=== PATIENT | male | born 1990 | race Two or more races ===

== ENCOUNTER 2022-03-05 08:37 | Emergency (ER) | payer MEDICAID ==
[~2022-03-05] VITALS: Ht 177.8 cm; Wt 75.0 kg
[2022-03-05] MEDS ORDERED: MORPHINE SULFATE 4 MG/ML CPJ (NOT FOR IM USE) IV ONE (08:45)
[2022-03-05] MEDS ORDERED: ONDANSETRON HCL 4MG/2ML INJ IV ONE (08:45)
[2022-03-05] MEDS ORDERED: SODIUM CHLORIDE 0.9% 1,000 ML IV ONE (08:45)
[2022-03-05] MEDS ORDERED: TETANUS, DIPHTHERIA, PERTUSSIS VAC/PF 0.5ML (>10YR OLD) IM ONE (08:45)
[2022-03-05 09:03] LABS: BASOPHILS % 0.7 % (0.0-2.0); EOSINOPHILS % 3.4 % (0.0-5.0); HEMATOCRIT. 45.8 % (42.0-52.0); HEMOGLOBIN. 15.8 g/dL (14.0-18.0); LYMPHOCYTES % 32.8 % (20.0-50.0); MEAN CORPUSCULAR HEMOGLOBIN 30.3 pg (28.0-32.0); MEAN CORPUSCULAR VOLUME 87.8 fL (80.0-94.0); MEAN PLATELET VOLUME 7.3 fl (7.4-10.4); MONOCYTES % 7.6 % (2.0-8.0); NEUTROPHILS % 55.5 % (40.0-76.0); PLATELET 281 x1000/uL (130-400); RED BLOOD CELL COUNT 5.21 mill/uL (4.7-6.1)
[2022-03-05 09:12] LABS: CHLORIDE 103 mEq/L (98-107)
[2022-03-05 09:14] LABS: PARTIAL THROMBOPLASTIN TIME 26.4 sec (23.4-31.0); PROTHROMBIN TIME 10.4 sec (9.6-11.0)
[2022-03-05] MEDS ORDERED: IBUP-2029 MT (09:57)
[2022-03-05] MEDS ORDERED: HYDR-4001 MT (09:57)
[2022-03-05 11:10] VITALS: BP 130/62
== END 2022-03-05 11:47 | disposition home or self-care (01) ==
LOC: ER 08:45
DX: S92.001B Unspecified fracture of right calcaneus, initial encounter for open fracture (principal); X93.XXXA Assault by handgun discharge, initial encounter; Y93.89 Activity, other specified; Y92.488 Other paved roadways as the place of occurrence of the external cause
CPT/HCPCS: 29515; 36415; 71045; 72170; 73630; 80053; 83690; 85025; 85610; 85730; 86850; 86900; 86901; 90471; 90715; 96361; 96374; 96375; 99284; J2270; J2405; J7030